=== PATIENT | male | born 1985 | race Caucasian/White ===

== ENCOUNTER 2021-04-29 05:12 | Emergency (ER) | payer OTHER ==
[~2021-04-29] VITALS: Ht 172.7 cm; Wt 83.9 kg
[2021-04-29 05:52] LABS: BASOPHILS 0.7 % (0.0-2.0); EOSINOPHILS 4.3 % (0.0-3.0); HEMATOCRIT 41.2 % (42.0-52.0); HEMOGLOBIN 13.9 gm/dL (14.0-18.0); LYMPHOCYTES 40.2 % (24.0-44.0); MCHC 33.7 g/dL (28.0-37.0); MCV 89.1 fL (80.0-100.0); MONOCYTES 10.9 % (1.0-8.0); PLATELET COUNT 285 thou/uL (150-400); POLYS 43.9 % (36.0-66.0); RBC 4.63 mil/uL (4.50-6.00); RDW 13.9 % (10.5-14.5); WBC 6.8 thou/uL (4.0-11.0)
[2021-04-29 05:55] LABS: CALCIUM 8.4 mg/dL (8.5-10.1); POTASSIUM 3.7 mmol/L (3.5-5.1)
[2021-04-29 09:39] VITALS: BP 104/58
== END 2021-04-29 09:45 | disposition home or self-care (01) ==
LOC: ER 05:12
PROVIDERS: Student in an Organized Health Care Education/Training Program
DX: F10.239 Alcohol dependence with withdrawal, unspecified (principal); Z20.822 Contact with and (suspected) exposure to COVID-19; Y90.9 Presence of alcohol in blood, level not specified